=== PATIENT | female | born 1955 | race Caucasian/White ===

== ENCOUNTER 2023-06-03 14:07 | Emergency (ER) | payer MEDICARE, SELFPAY ==
[2023-06-03 14:25] VITALS: BP 107/70; PULSE 95; RESP 16; TEMP 39.5; O2SAT 97
--- NOTE | 2023-06-03 14:25 | ED.GENADULT ---
HPI - General Adult General Chief complaint: Upper Respiratory Infection Stated complaint: fever,chills,body aches Source: patient and RN notes reviewed History of Present Illness HPI narrative: 67 yo F presents to urgent care with multiple medical complaints. Pt states she has been feeling terrible since yesterday. Pt reports upper chest pain that radiates into her neck and jaw, nausea, ARGUELLO, fevers, and weakness. Pt states she feels like she could pass out and can't make it 5 ft to the bathroom b/c of her weakness. Pt reports a slight cough and a little diarrhea. Denies any SOB, vomiting, sore throat, or ear pain. Pt took Tylenol arthritis around 10 am today. Related Data Home Medications Medication Instructions Recorded Confirmed duloxetine 60 mg capsule,delayed mg PO 06/03/23 release orphenadrine citrate 100 mg mg PO 06/03/23 tablet,extended release propranolol 60 mg capsule,24 mg PO 06/03/23 hr,extended release topiramate 50 mg tablet mg 06/03/23 Allergies Allergy/AdvReac Type Severity Reaction Status Date / Time Sulfa (Sulfonamide Allergy Rash Verified 06/03/23 14:26 Antibiotics) ibuprofen AdvReac Other Verified 06/03/23 14:41 Review of Systems Review of Systems: Pertinent positives and pertinent negatives per HPI. [facility] Comments At the time of my signature, I reviewed and agree with the nursing past medical, surgical, social, and family history. There is no relevant family history pertinent to the patient complaint. Exam Narrative: GENERAL: Pt appears ill and weak. HEAD: normocephalic, atraumatic. EYES: Sclera clear/white. Vision is grossly intact. EARS: External ears normal, auditory canals clear and without drainage. Hearing grossly intact. NOSE: External nose normal with no obvious nasal discharge, nares without redness, no rhinorrhea. THROAT: Mucous membranes moist, posterior pharynx clear. NECK: Neck supple, non-tender without lymphadenopathy, masses or thyromegaly. CARDIOVASCULAR: Regular rate and rhythm without murmurs, gallops, or rubs. RESPIRATORY: Clear to auscultation. Breath sounds equal bilaterally. No wheezes, rales, or rhonchi. GASTROINTESTINAL: Abdomen soft, non-tender, nondistended. Bowel sounds are active. No hepato-splenomegaly, or palpable masses. No guarding. SKIN: warm, intact with no suspicious lesions or rash, good texture and turgor. NEURO: awake, alert, and oriented to person, place and time. BACK: Nontender without deformity or crepitus. No flank tenderness. Course Course Level of Care: Express Care Visit Vital Signs Vital signs: Vital Signs Temperature 103.1 F H 06/03/23 14:25 Pulse Rate 95 06/03/23 14:25 Respiratory Rate 16 06/03/23 14:25 Blood Pressure 107/70 06/03/23 14:25 Pulse Oximetry 97 06/03/23 14:25 Oxygen Delivery Room Air 06/03/23 14:25 Temperature 103.1 F H 06/03/23 14:25 Pulse Rate 95 06/03/23 14:25 Respiratory Rate 16 06/03/23 14:25 Blood Pressure 107/70 06/03/23 14:25 Pulse Oximetry 97 06/03/23 14:25 Oxygen Delivery Room Air 06/03/23 14:25 reviewed Medical Decision Making MDM Narrative Medical decision making narrative: Pt informed of reasons for recommended ER transfer, including blood work and IV fluids. Pt agrees to go with her taking her. Pt called and he is on his way from work. Report called to Dr. Gonzalez at [facility], who accepts pt. Differential Diagnosis Differential Diagnosis: covid, viral illness, cardiac event Vital Signs Vital Signs: Vital Signs Temperature 103.1 F H 06/03/23 14:25 Pulse Rate 95 06/03/23 14:25 Respiratory Rate 16 06/03/23 14:25 Blood Pressure 107/70 06/03/23 14:25 Pulse Oximetry 97 06/03/23 14:25 Oxygen Delivery Room Air 06/03/23 14:25 Temperature 103.1 F H 06/03/23 14:25 Pulse Rate 95 06/03/23 14:25 Respiratory Rate 16 06/03/23 14:25 Blood Pressure 107/70 06/03/23 14:25 Pu
[2023-06-03 15:07] VITALS: TEMP 39.5
[2023-06-03] MEDS: ACETAMINOPHEN 325 MG TABLET 650 MG PO (15:07)
[2023-06-03] MEDS: ONDANSETRON HCL ODT 4 MG TABLET PO (15:07)
--- NOTE | 2023-06-03 15:13 | ECG_ITS ---
Measurements Intervals [place] Rate: 91 P: 7 MO: 158 QRS: -17 QRSD: 92 T: 24 QT: 340 QTc: 418 Interpretive Statements SINUS RHYTHM MINIMAL VOLTAGE CRITERIA FOR LVH, CONSIDER NORMAL VARIANT [MEETS CRITERIA IN ONE OF: R(aVL), S(V1), R(V5), R(V5/V6)+S(V1)] NO PREVIOUS ECG AVAILABLE FOR COMPARISON Electronically Signed On 06-04-2023 11:31:34 CDT by Petrona Huynh M.D.
[2023-06-03 15:32] VITALS: BP 130/68; PULSE 94; RESP 20; TEMP 38.2; O2SAT 99
[2023-06-03 15:37] VITALS: TEMP 38.2
== END 2023-06-03 15:40 | disposition short-term general hospital (02) ==
PROVIDERS: Emergency Provider Nurse Practitioner Family; PCP Emergency Medicine
DX: B34.9 Viral infection, unspecified (principal); Z20.822 Contact with and (suspected) exposure to COVID-19; Z98.84 Bariatric surgery status
CPT/HCPCS: 87426; 93005; 99203; A9270; C9803; G0463

== ENCOUNTER 2023-06-03 15:59 | Emergency (ER) | payer MEDICARE, SELFPAY ==
[2023-06-03] VITALS (7 sets, daily range): BP systolic 117–137; BP diastolic 47–75; PULSE 69–91; RESP 15–19; TEMP 37.4–38.9; O2SAT 94–100
--- NOTE | ~2023-06-03 | XR_ITS ---
EXAMINATION: XR chest 2V DATE: 06/03/2023 17:08 INDICATION: Chest pain, cough and fever TECHNIQUE: PA and lateral views of the chest were obtained. COMPARISON: None FINDINGS: The lungs are clear with no focal airspace opacities, pulmonary edema, pleural effusion or pneumothor ax. Size is normal. Tortuous thoracic aorta. Cholecystectomy clips in right upper quadrant. Mild to m oderate thoracic spondylosis. IMPRESSION: 1. No acute cardiopulmonary disease. Reviewed, dictated and finalized at location A.
--- NOTE | 2023-06-03 16:49 | ECG_ITS ---
Measurements Intervals [place] Rate: 84 P: 5 MT: 148 QRS: -11 QRSD: 92 T: 30 QT: 357 QTc: 424 Interpretive Statements SINUS RHYTHM COMPARED TO ECG 06/03/2023 15:14:22 NO SIGNIFICANT CHANGES Electronically Signed On 06-04-2023 11:33:48 CDT by Petrona Huynh M.D.
[2023-06-03 17:21] LABS: Basophils Absolute Auto 0.1 K/mm3 (0.0-0.1); Eosinophils Percent Auto 0.6 % (0-4.4); Hematocrit 44.7 % (37.0-47.0); Hemoglobin 14.5 g/dL (12.0-15.0); Immature Granulocyte Absolute 0.02 K/mm3 (0.00-0.031); Immature Granulocyte Percent A 0.4 % (0-0.5); Lymphocytes Absolute Auto 0.52 K/mm3 (0.9-3.2); Lymphocytes Percent Auto 10.4 % (18.3-44.2); Mean Corpuscular HGB Conc 32.4 g/dl (32-36); Mean Corpuscular Hemoglobin 31.7 pg (26-34); Mean Corpuscular Volume 97.8 fl (80-100); Mean Platelet Volume 9.1 fl (7.4-10.4); Monocytes Absolute Auto 0.6 K/mm3 (0.1-0.6); Monocytes Percent Auto 11.8 % (2.6-8.5); Neutrophils Absolute Auto 3.8 K/mm3 (1.3-6.7); Neutrophils Percent Auto 75.8 % (45.5-73.1); Platelet Count Result 159 k/mm3 (150-375); Red Blood Count 4.57 M/mm3 (4.2-5.4); Red Cell Distribution Width 13.2 % (11.5-14.5)
[2023-06-03 17:33] LABS: Alanine Aminotransferase 24 U/L (6-35); Albumin Level 4.5 g/dL (3.5-5.1); Alkaline Phosphatase 99 U/L (38-126); Anion Gap 6 mmol/L (8-16); Aspartate Amino Transferase 27 U/L (14-36); Bilirubin,Total 0.5 mg/dL (0.2-1.3); Blood Urea Nitrogen 11 mg/dL (7-17); Calcium 8.6 mg/dL (8.4-10.2); Carbon Dioxide 25 mmol/L (22-30); Chloride 106 mmol/L (98-107); Estimated CRCL calculation 86 ml/min; Estimated Glomerular Filt Rate > 60; Glucose 123 mg/dL (65-110); Lipase 38 U/L (23-300); Potassium 3.8 mmol/L (3.4-5.0); Sodium 137 mmol/L (137-145)
[2023-06-03 17:43] LABS: Troponin I < 0.012 ng/mL (0.000-0.034)
[2023-06-03 17:57] LABS: Influenza A QL RT-PCR Negative (Negative); Influenza B QL RT-PCR Negative (Negative); SARS-CoV-2 RNA PCR Positive (Negative)
[2023-06-03 18:11] LABS: Prothrombin Time 14.2 Seconds (11.1-14.7)
[2023-06-03 18:12] LABS: Partial Thromboplastin Time 29.2 SECONDS (22.3-36.8)
[2023-06-03 21:03] LABS: Troponin I < 0.012 ng/mL (0.000-0.034)
[2023-06-03] MEDS: ACETAMINOPHEN 500 MG TABLET 1000 MG PO (22:17)
[2023-06-03 22:28] LABS: D Dimer 0.31 ug/mL (<0.48)
--- NOTE | 2023-06-03 22:34 | ED.FEVER ---
HPI - Fever General Chief Complaint: Fever Stated Complaint: fever Time Seen by Provider: 06/03/23 21:42 Source: patient and family Mode of arrival: ambulatory Limitations: no limitations History of Present Illness HPI Narrative: This is a 67-year-old female that presents to the emergency department for cold symptoms present since yesterday. Reports fever, fatigue, myalgias, and cough. She is COVID vaccinated. Patient was sent for evaluation from urgent care due to her having some chest pain. Reports some nausea. Denies abdominal pain or vomiting. Related Data Home Medications Medication Instructions Recorded Confirmed duloxetine 60 mg capsule,delayed mg PO 06/03/23 release orphenadrine citrate 100 mg mg PO 06/03/23 tablet,extended release propranolol 60 mg capsule,24 mg PO 06/03/23 hr,extended release topiramate 50 mg tablet mg 06/03/23 Allergies Allergy/AdvReac Type Severity Reaction Status Date / Time Sulfa (Sulfonamide Allergy Rash Verified 06/03/23 14:26 Antibiotics) ibuprofen AdvReac Other Verified 06/03/23 14:41 Review of Systems Review of Systems: CONSTITUTIONAL: Reports fever ENT: Reports congestion CARDIOVASCULAR: Reports chest pain. Denies edema. RESPIRATORY: Reports cough and dyspnea. GASTROINTESTINAL: Reports nausea MUSCULOSKELETAL: Reports myalgia. All systems reviewed & are unremarkable except as noted in HPI and below PMFSH Past Medical History Medical History (Updated 06/03/23 @ 23:33 by Kita Bruner PA-C) History of depression History of migraine headaches Social History Social History (Updated 06/03/23 @ 23:33 by Kita Bruner PA-C) Substance use: never Exam Narrative: GENERAL: Well-appearing, well-nourished, and in no acute distress. HEAD: Normocephalic, atraumatic. EYES: EOMI. ENT: Nares clear, no rhinorrhea or epistaxis. Mucous membranes moist. Oropharynx without tonsillar hypertrophy exudate or other lesions. Bilateral TMs pearly rehman non-bulging NECK: Supple. No adenopathy or masses. CHEST: Clear to auscultation. No respiratory distress. No wheezes rales or rhonchi HEART: Regular rate and rhythm. No murmur heard. Normal peripheral pulses. ABDOMEN: Soft, nontender, nondistended, normal active bowel sounds. EXTREMITIES: Normal range of motion. No edema. SKIN: Warm, dry, no rash. NEURO: No focal deficits. Alert and oriented x3. PSYCH: Normal mood and affect Course HEDIS REGISTERED NURSE RN/PA Physician Supervision Patient and family updated on workup and agree with plan of care Vital Signs Vital signs: Vital Signs Temperature 99.3 F 06/03/23 16:45 Pulse Rate 85 06/03/23 16:45 Respiratory Rate 18 06/03/23 16:45 Blood Pressure 126/62 06/03/23 16:45 Pulse Oximetry 95 06/03/23 16:45 Oxygen Delivery Room Air 06/03/23 16:45 Temperature 101.2 F H 06/03/23 22:47 Pulse Rate 78 06/03/23 22:04 Respiratory Rate 19 06/03/23 22:04 Blood Pressure 122/47 L 06/03/23 22:04 Pulse Oximetry 97 06/03/23 22:04 Oxygen Delivery Room Air 06/03/23 21:33 MDM - Fever MDM Narrative Medical decision making narrative: Patient presents to the emergency department for fever and myalgias. Febrile in the ED. Found to be positive for COVID-19. Oxygen saturation has remained normal on room air. CBC metabolic panel without concerning findings. Chest x-ray without acute cardiopulmonary abnormality. EKG without acute ST changes at baseline and throughout troponin are negative. D-dimer is not elevated. Patient and family updated on workup. Will be prescribed Paxlovid and was instructed on continued care a viral infection. She is to follow up with primary provider. She was given warnings to return to the ER Differential Diagnosis Differential diagnosis: Likely fever of unknown origin, community acquired pneumonia, viral infection and influenza Lab Data Attestation: I reviewed the patient's lab results. 06/03/23 17:02 05/14
--- NOTE | 2023-06-03 22:39 | PC.NURSE ---
Per EDP STEFFANY Wall six hour troponin not needed on the patient
[2023-06-03] MEDS: KETOROLAC 30 MG/ML VIAL (*BKC) IM (22:58)
== END 2023-06-03 23:39 | disposition home or self-care (01) ==
PROVIDERS: Emergency Medicine; Emergency Provider Physician Assistant; PCP Emergency Medicine
DX: U07.1 COVID-19 (principal); R07.9 Chest pain, unspecified; F32.A Depression, unspecified
CPT/HCPCS: 36415; 71046; 80053; 83690; 84484; 85025; 85380; 85610; 85730; 87426; 87636; 93005; 96372; 99284; A9270; C9803; J1885

== ENCOUNTER 2023-07-18 16:11 | Outpatient (CLI) | payer OTHER, SELFPAY ==
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
== END 2023-07-18 16:12 | disposition home or self-care (01) ==
LOC: CHSIMG 16:14
PROVIDERS: PCP Internal Medicine; Visit Provider Internal Medicine
DX: M54.2 Cervicalgia (principal); M43.8X2 Other specified deforming dorsopathies, cervical region; M43.02 Spondylolysis, cervical region; M46.02 Spinal enthesopathy, cervical region
CPT/HCPCS: 72050

== ENCOUNTER 2024-09-30 08:20 | Emergency (ER) | payer MEDICARE, SELFPAY ==
--- NOTE | ~2024-09-30 | XR_ITS ---
EXAMINATION: XR chest 2V 09/30/2024 09:09 INDICATION: Productive cough PROCEDURE: 2 view chest COMPARISON: 06/08/2024 FINDINGS: The lungs are clear. The cardiomediastinal silhouette is within normal limits. There are no pleural effusions. There is no pneumothorax suspected. IMPRESSION: 1: NO ACUTE CARDIOPULMONARY DISEASE. Reviewed, dictated and finalized at location [] MASTERS MANAGER
--- NOTE | 2024-09-30 08:41 | ED_ITS ---
HPI - URI/Sore Throat General Chief Complaint: Upper Respiratory Infection Stated Complaint: cough,ARGUELLO,fever,chills Time Seen by Provider: 09/30/24 08:50 Source: patient, RN notes reviewed and old records reviewed Mode of arrival: ambulatory Limitations: no limitations History of Present Illness HPI Narrative: 68-year-old female presents to the [facility] with cough, headache, fever and chills that started 10-14 days ago. Onset (ago): day(s) (-) Treatments prior to arrival: cold medicine Related Data Home Medications ?Medication ?Instructions ?Recorded ?Confirmed ?Last Taken ?Type duloxetine 60 mg capsule,delayed 60 mg PO DAILY 06/03/23 09/30/24 Unknown History release orphenadrine citrate 100 mg 100 mg PO DAILY 06/03/23 09/30/24 Unknown History tablet,extended release propranolol 60 mg capsule,24 60 mg PO Q24H 06/03/23 09/30/24 Unknown History hr,extended release topiramate 50 mg tablet 50 mg PO Q12H 06/03/23 09/30/24 Unknown History estradiol 0.01% (0.1 mg/gram) 1 g vaginal WEEKLY 09/30/24 09/30/24 Unknown History vaginal cream polyethylene glycol 3350 17 17 g PO DAILY 09/30/24 09/30/24 Unknown History gram/dose oral powder Allergies Allergy/AdvReac Type Severity Reaction Status Date / Time adhesive tape Allergy Rash Verified 09/30/24 08:37 levofloxacin (From Levaquin) Allergy Other Verified 09/30/24 08:37 NSAIDS (Non-Steroidal Allergy Other Verified 09/30/24 08:37 Anti-Inflamma Sulfa (Sulfonamide Allergy Rash Verified 09/30/24 08:37 Antibiotics) ibuprofen AdvReac Other Verified 09/30/24 08:37 Review of Systems Review of Systems: All systems reviewed & are unremarkable except as noted in HPI and below Constitutional: Constitutional: Reports as per HPI, Reports body ache(s) and Reports fatigue ENT: Reports system reviewed and no additional complaints, except as documented Cardiovascular: Cardiovascular: Reports no additional cardiovascular complaints, Denies chest pain and Denies dyspnea Respiratory: Respiratory: Reports as per HPI, Reports chest congestion, Reports cough and Denies dyspnea Gastrointestinal: Gastrointestinal: Reports no additional gastrointestinal complaints, Denies abdominal pain, Denies nausea and Denies vomiting Musculoskeletal: Musculoskeletal: Reports no additional musculoskeletal complaints Integumentary/Breasts: Skin/Breast: Reports system reviewed and no additional complaints, except as docu [facility] Past Medical History Medical History History of depression History of migraine headaches Social History Social History Substance use: never Comments At the time of my signature, I reviewed and agree with the nursing past medical, surgical, social, and family history. There is no relevant family history pertinent to the patient complaint. Exam Const: General: cooperative, no acute distress, well developed, alert, uncomfortable and well nourished Nutritional Appearance: well nourished Orientation/consciousness: patient oriented x3 Limitations: no limitations HENMT: Head: normal to inspection Ears: hearing grossly normal bilaterally, external ears normal, TM's normal bilaterally, EAC's normal, mastoids normal and no periauricular adenopathy Face/Nose/Sinus: Normal external nose present, normal facial exam and face symmetric Face and sinus: normal facial exam and face symmetric Mouth: Yes Normal oral and palatal mucosa present, Yes lip normal and Yes tongue normal Throat: posterior oropharynx normal, uvula midline, postnasal drainage and no uvular edema Eyes: General: appearance normal, both eyes and all related structures Alignment and Position: alignment normal Periorbital: periorbital findings normal Neck: Neck: normal visual inspection, full ROM, no lymphadenopathy and no meningeal signs Chest: Chest palpation & inspection: normal inspection of the chest Resp: Effort & Inspection: normal respiratory effort and able to speak in complete sentences Auscultation: clear to auscultation bilaterally, no crackles, no rales, no rhonchi, no wheezes and diminished lung sounds bilateral in the lower lung blair Cardio: Rate: regular rate Skin: General skin exam: normal color and no rashes or lesions noted Lesions: no lesions Rashes: no rashes Wounds: no wounds Neuro: General: patient oriented x3, gait normal, tone normal, moves all extremities and no meningeal signs Cognition (Neuro): normal cognition Speech: normal speech Gait exam (Neuro): Normal gait present Extrem: General: normal to inspection, full ROM, capillary refill normal and normal gait Psych: Appearance: grossly normal and well kempt Mental Status: mental status grossly normal Speech and movement: Normal speech and movement present and Clear speech present Affect: normal affect Attitude: cooperative Course Course Level of Care: Express Care Visit Vital Signs Vital signs: Vital Signs Temperature 98.4 F 09/30/24 08:49 Pulse Rate 74 09/30/24 08:49 Respiratory Rate 16 09/30/24 08:49 Blood Pressure 109/81 09/30/24 08:49 Pulse Oximetry 97 09/30/24 08:49 Oxygen Delivery Room Air 09/30/24 08:49 Temperature 98.4 F 09/30/24 08:49 Pulse Rate 74 09/30/24 08:49 Respiratory Rate 16 09/30/24 08:49 Blood Pressure 109/81 09/30/24 08:49 Pulse Oximetry 97 09/30/24 08:49 Oxygen Delivery Room Air 09/30/24 08:49 Reviewed MDM - URI/Sore Throat MDM Narrative Medical decision making narrative: Patient sitting in exam room. Nontoxic, vitals stable. Patient with 10-14 days of URI symptoms Patient's chest x-ray negative Exam consistent with sinusitis as well as bronchitis. Due to patient's age and length of illness will cover with an antibiotic, discussed that sometimes bronchitis cough can last for several weeks if not a couple of months. Patient appropriate for outpatient treatment with close follow-up Discharge instructions reviewed with patient, as well as provided in writing per nursing staff. The instructions also include specific and strict return/GO TO THE ER as well as f/u information. All questions have been answered, and the patient deny any further questions with discharge and discharge plan. Some parts of this dictation were generated by voice recognition software and may contain typographical and/or grammatical inaccuracies. Differential Diagnosis Differential diagnosis: Likely upper respiratory infection, otitis media, sinusitis, viral infection, bronchitis, influenza and pharyngitis Imaging Data Radiologist's impression: EXAMINATION: XR chest 2V 09/30/2024 09:09 INDICATION: Productive cough PROCEDURE: 2 view chest COMPARISON: 06/08/2024 FINDINGS: The lungs are clear. The cardiomediastinal silhouette is within normal limits. There are no pleural effusions. There is no pneumothorax suspected. IMPRESSION: 1: NO ACUTE CARDIOPULMONARY DISEASE. Critical Care Time Critical Care Time Critical Care Time: No Discharge Plan Discharge Clinical Impression: Bronchitis Sinusitis Qualifiers: Sinusitis location: pansinusitis Chronicity: acute Recurrence: not specified as recurrent Qualified Code(s): J01.40 - Acute pansinusitis, unspecified Patient Disposition: Home, Self-Care Condition: Stable Instructions: Antibiotic Form, Sinusitis (ED), Acute Bronchitis (ED) Additional Instructions: Today your chest x-ray did not show signs of a pneumonia. You have been diagnosed with bronchitis and sinusitis, sometimes the cough after treatment can last for several weeks if not months. Please follow-up with your primary care provider as soon as possible. It is also very important to treat your symptoms. Drink plenty of water, Gatorade, Pedialyte, ice pops or Jell-O. -take Tylenol per package directions for fever or pain. -Antihistamine medication such as Zyrtec/Claritin/Lolita during the day can help improve symptoms. -doing daily nasal irrigations can help relieve pressure your sinuses. Things like a Neti pot -Use Flonase twice a day for 5 days then daily to help reduce the inflammation and dry up your sinuses. -You can also use Mucinex. Be sure to drink plenty of water with this medication at least 8 ounces with every dose and it is important to drink 8 to 10 glasses of water per day. Water is a natural decongestant -Eat and drink things that are easy to swallow, like tea or soup, or popsicles. -Oral rinses such as: Salt water gargles and/or may use topical anesthetic (eg. Chloraseptic spray) or lozenges to relieve dryness or throat pain). -Frequent hand washing or hand wire repairer is one of the best ways to prevent spread of infection. -Using a vaporizer or humidifier at night will also help thin secretions and help with coughing up phlegm. -Follow up with primary care provider in 7-10 days if condition is not improving -For new or worsening symptoms go directly to the nearest ER Patient Language: Korean Prescriptions: New doxycycline monohydrate 100 mg tablet 100 mg PO BID Qty: 14 0RF prednisone 20 mg tablet See Rx Instructions .Route .COMPLEX Qty: 9 0RF Rx Instructions: Take 40 mg daily for 3 days, 20 mg daily for 3 days benzonatate 100 mg capsule 100 mg PO TID PRN (Reason: cough) Qty: 15 0RF No Action propranolol 60 mg capsule,extended release 24 hr 60 mg PO Q24H orphenadrine citrate 100 mg tablet extended release 100 mg PO DAILY topiramate 50 mg tablet 50 mg PO Q12H duloxetine 60 mg capsule,delayed release(DR/EC) 60 mg PO DAILY estradiol 0.01 % (0.1 mg/gram) cream 1 g VAGINAL WEEKLY polyethylene glycol 3350 17 gram/dose powder 17 g PO DAILY Follow-up/Referrals: Elver Kumar MD [Primary Care Provider] - 1 Week ([facility] care follow up ) Time of Disposition: 09:20
[2024-09-30 08:49] VITALS: BP 109/81; PULSE 74; RESP 16; TEMP 36.9; O2SAT 97
== END 2024-09-30 09:25 | disposition home or self-care (01) ==
PROVIDERS: Emergency Provider Nurse Practitioner; PCP Internal Medicine
DX: J40 Bronchitis, not specified as acute or chronic (principal); J01.40 Acute pansinusitis, unspecified; Z79.899 Other long term (current) drug therapy
CPT/HCPCS: 71046; 99213; G0463

== ENCOUNTER 2024-11-18 11:21 | Outpatient (CLI) | payer MEDICARE, SELFPAY ==
--- OUTSIDE RECORDS SUMMARY | 2024-11-18 11:44 | XMS_ITS | Encounter Summary ---
Author Organization [facility] Address [address] [place] [address] Care Team Providers Care [employer] Name Role Phone Elver Kumar MD Primary Care Provider [phone] Reason for Visit * Reason Onset Date Comments Referral Follow up 05/11/2024 Dr Luther woods : Colon Cancer Screening Referral Follow Up 05/11/2024 Dr Araujo Encounter Details Date Type Department Care Team (Late st Contact Info) Description 05/11/2024 Telephone [employer] [address] [place] [address] [place] [address] Keely Saleh MD [address] [place] [id number] Referral Follow up (Dr Luther Gomez : Colon Cancer Screening ); Referral Follow Up (Dr Araujo ) Social History Tobacco Use Types Packs/Day Years Used Date Smoking Tobacco: Never Smokeless Tobacco: Never Humiliation, Afraid, Rape, and Kick questionnair e Answer Date Recorded Within the last year, have y ou been afraid of your partner or ex-partner? No 02/12/2024 Within the last year, have y ou been humiliated or emotionally abused in other ways by your partner or ex-partner? No Within the last year, have y ou been kicked, hit, slapped, or otherwise physically hurt by your partner or ex-partner? No 02/12/2024 Within the last year, have y ou been raped or forced to have any kind of sexual activity by your partner or ex-partner? No 02/12/2024 Personal Safety Answer Date Recorded Getting School Help Needed Not on file 02/01 Comments No Sex and Gender Information Value Date Recorded Sex Assigned at Not on file Legal Sex Female 6:50 PM [employer] Gender Identity Not on file Sexual Orientation Not on file documented as of this encounter Miscellaneous Notes * Telephone Encounter - Deborah Fuentes MA - 11/17/2024 2:59 PM [employer] [phone] UROGYN Nancy Morfin MD Spoke w/ Leslee Claims that patient was scheduled 08/19/2024, declined to r/s. [phone] No answer, left a detailed VM (HIPAA approved) to enc patient to call Dr Morfin's office, provided number to reschedule her appointment. Thank you, Deborah RMAN * Telephone Encounter - Deborah Fuentes MA - 05/11/2024 10:24 AM CDT [phone] Gayle's office Spoke w/ Clemencia Following up on referral faxed 03/03/2024 Verified that this referral was NOT received Refaxed to [phone], REN Gaviria Received fax confirmation Thank you Deborah * Telephone Encounter - Deborah Fuentes MA - 05/11/2024 10:[address] CD[address] [phone] Gomez office. Spoke w/ Michelle Following up referral faxed 03/11/2024 Verified that patient completed colonoscopy on 04/09/2024 Requested results to be faxed to [phone] Claims that she can not find the company name in the system, asked if office was Maria [facility]berg, verified [facility] - Claims that she will ask for some help to get these results faxed to our office Thank you Deborah documented in this encounter Plan of Treatment Not on file documented as of this encounter Visit Diagnoses Not on filedocumented in this encounter Care Teams [employer] Relationship Specialty Start Date End Date Elver Kumar MD PCP - General Internal Medicine 02/04/24 documented as of this encounter
--- OUTSIDE RECORDS SUMMARY | 2024-11-18 11:44 | XMS_ITS | Clinical Summary ---
Author Organization [facility] [address] [place] Address [address] [place] [phone] Care Team Providers Care Dandy Operator Name Role Phone Elver Kumar MD Primary Care Provider [phone] Allergies Active Allergy Reactions Criticality Noted Date Comments Latex Rash Medium 02/12/2024 Sulfa (Sulfonamide Antibiotics) Medications DULoxetine DR (CYMBALTA) 60 mg capsule Take 1 capsule (60 mg total) by mouth daily 12/04/2023 Active topiramate (TOPAMAX) 50 mg tablet Take 1 tablet (50 mg total) by mouth 2 (two) times a day 01/02/2024 Active propranolol LA (INDERAL LA) 60 mg 24 hr capsule TAKE 1 CAPSULE BY MOUTH IN THE EVENING 12/04/2023 Active orphenadrine ER (NORFLEX) 100 mg 12 hr tablet Take 1 tablet (100 mg total) by mouth nightly 11/18/2023 Active cyanocobalamin (Vitamin B-12) 100 mcg tabletIndicatio ns:Prevention of Vitamin B12 Deficiency Take 1 tablet (100 mcg total) by mouth daily Active multivitamin with minerals capsule Take by mouth Active calcium carbonate (TUMS) 500 mg (200 mg elemental calcium) chewable tablet Take 1 tablet/chew tab (500 mg total) by mouth daily Active magnesium gluconate 200 mg tabletIndicatio ns:hypomagnesem ia 1 tablet (200 mg total) Active iron 18 mg tablet Take by mouth Active estradioL (Estrace) 0.01 % (0.1 mg/gram) vaginal cream Insert 1 g into the vagina 2 (two) times a week 42.5 g 3 02/19/2024 Active Active Problems Problem Noted Date Diagnosed Date Postmenopausal bleeding 03/03/2024 Assessment & Plan (03/03/2024 4:17 PM CDT): We will follow-up on this when she comes back for her return appointment Rectocele 02/12/2024 Assessment & Plan (03/03/2024 4:14 PM CDT): As she wants a 2nd opinion I will send her to Dr. Araujo In the meantime I think she should continue with the vaginal estrogen and arrange to have the pelvic floor physical therapy Assessment & Plan (02/12/2024 11:28 AM CDT): It is large Will refer to uro agriculture science teacher Well woman exam 02/12/2024 Overview (02/12/2024): Lab: Pap: all normal. Last was 2022. Pcp follows labs. Angely:2022 Colonoscopy:due- pcp will arrange BMD:due Family history of prostate cancer 02/12/2024 Overview (03/29/2024): F and brother x 2 prostate with mets. 03/29/2024-myRisk is negative. TCA score is 7.6% in my risk score is 5.9% Assessment & Plan (03/03/2024 4:15 PM CDT): She would like to do genetic testing The benefits and limitations were discussed at her last appointment Assessment & Plan (02/12/2024 11:17 AM CDT): She will think about testing. Vulvar lesion 02/12/2024 Assessment & Plan (02/12/2024 11:29 AM CDT): To continue with coconut oil Pelvic and perineal pain 02/12/2024 Assessment & Plan (03/03/2024 4:14 PM CDT): She needs to have a colonoscopy as she is due also because of the change on her ultrasound. She wants to see a bariatric surgeon she thinks that her pain is related to this I have encouraged her to follow-up with the surgeon that did her surgery or with Dr. 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 2000 ? Maybe ANAL FISSURECTOMY ABDOMINOPLASTY Medical History Medical History Date Comments Arthritis Migraines Irregular menses Urinary tract infection Endometriosis Uterine prolapse Rectocele Kidney stone Varicella Hypertension History of transfusion Family History Medical History Relation Name Comments Alcohol abuse Brother 1 Lalo Prostate cancer Brother 1 Lalo with mets Prostate cancer Brother 2 Shan with mets Hearing loss Father Denny Prostate cancer Father Denny with mets Arthritis Mother Alida defects Mother Alida Heart disease Mother Alida Hypertension Mother Alida Cancer Neg Hx no colon, breas t, agriculture science teacher cancer cmt 02/12/24 Relation Name Status Comments Brother 1 Lalo Brother 2 Shan Alive Father Denny Mother Alida Social History Tobacco Use Types Packs/Day Years Used Date Smoking Tobacco: Never Smokeless Tobacco: Never Tobacco Cessation:Counseling Given: Not Answered Humiliation, Afraid, Rape, and Kick questionnair e [...] on file Legal Sex 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 Gender Identity Not on file Sexual Orientation Not on file Obstetrics History Para Term AB IAB SAB Ectopic Multiple Livin g Live Births 3 2 2 1 1 2 2 Date Outcome GA Total Labor Labor/2nd/3rd Weight Sex Type Anes PTL Jenny A1 A5 Name Clin SAB 6 Term F Vag-S pont Living 9 Term M Vag-S pont Living Last Filed Vital Signs Vital Sign Reading Time Taken Comments Blood Pressure 122/80 03/03/2024 3:23 PM CDT Pulse - - Temperature - - Respiratory Rate - - Oxygen Saturation - - Inhaled Oxygen Concentration - - Weight 118.8 kg (262 lb) 03/03/2024 3:23 PM CDT Height 167.6 cm (5' 6 ) 02/17/2024 2:21 PM CDT Body Mass Index 42.29 02/17/2024 2:21 PM CDT Plan of Treatment Health Maintenance Due Date Last Done Comments Breast Cancer Screening-Mammogram 1955 Colon Cancer Screening-Colonoscopy 1957 Depression Screening 1957 Fall Risk Assessment 1957 Hepatitis C Screening 1957 Osteoporosis Screening-Bone Density Scan 1957 DTaP/Tdap/Td Vaccine (1 - Tdap) 1968 Hepatitis B Screening 1975 Well Visit 65+ 2022 Influenza Vaccine (#1) 2024 3, 07/12/2021, 08/02/2020, Additional history exists Zoster Vaccine Completed 04/15/2019, 09/27/2018 Pneumococcal vaccine 65+ Completed 09/09/2023, 07/13 Insurance [employer] [facility] ADVANTRA [facility] Care Teams Dandy Operator Relationship Specialty Start Date End Date Elver Kumar MD PCP - General Internal Medicine 02/04/24
--- OUTSIDE RECORDS SUMMARY | 2024-11-18 11:44 | XMS_ITS | Referral Summary ---
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
--- OUTSIDE RECORDS SUMMARY | 2024-11-18 11:45 | XMS_ITS | Referral Summary ---
Author Organization [facility] Address [address] [place] [address] Care Team Providers Care Chandelier Maker Name Role Phone Unavailable Primary Care Provider Unavailabl e Source Comments [facility],non-owned Affiliates and Associated Physician Practices is amultiple site organization consisting of ambulatory clinics and hospital sitesin [place], [place], [place] and [place]. This disclosure is being madepursuant to the Care Everywhere program and may not contain all information available regarding this patient. Last updated 18.[facility] Social History Tobacco Use Types Packs/Day Years Used Date Smoking Tobacco: Never Assessed Sex and Gender Information Value Date Recorded Sex Assigned at Not on file Gender Identity Not on file Sexual Orientation Not on file Plan of Treatment Not on file
--- OUTSIDE RECORDS SUMMARY | 2024-11-18 11:45 | XMS_ITS | Clinical Summary ---
Author Organization [facility] Address [address] [place] [address] Care Team Providers Care Mounting Inspector Name Role Phone Unavailable Primary Care Provider Unavailabl e Source Comments [facility],non-owned Affiliates and Associated Physician Practices is amultiple site organization consisting of ambulatory clinics and hospital sitesin [place], [place], [place] and [place]. This disclosure is being madepursuant to the Care Everywhere program and may not contain all information available regarding this patient. Last updated 18.[facility] [employer] Social History Tobacco Use Types Packs/Day Years Used Date Smoking Tobacco: Never Assessed Sex and Gender Information Value Date Recorded Sex Assigned at Not on file Gender Identity Not on file Sexual Orientation Not on file Plan of Treatment Health Maintenance Due Date Last Done Comments BONE DENSITY TESTING 1957 COLOGUARD (AGES 45-75) - COLON CA SCREENING 1957 COLON MONITORING 1957 COLONOSCOPY - COLON CA SCREENING 1957 CT COLONOGRAPHY - COLON CA SCREENING 1957 Colorectal Cancer Screening 1957 FIT - COLON CA SCREENING 1957 FLEX SIG - COLON CA SCREENING 1957 LIPID TESTING 1957 MAMMOGRAM 1957 HEPATITIS C SCREENING 10/15/1975 DTAP/TDAP/TD VACCINES (1 - Tdap) 1976 PNEUMOCOCCAL VACCINE 50+ (1 of 1 - PCV) 2007 ZOSTER VACCINE (1 of 2) 2007 COVID-19 VACCINE (4 - 2023- season) 2024 07/12/2021, 11/15/2020, 2020 INFLUENZA VACCINE (#1) 2024 3, 07/12/2021, 08/02/2020, Additional history exists DEPRESSION SCREENING 10/13/2024 MEDICARE AWV CALENDAR YEAR 2024 Respiratory Syncytial Virus (RSV) Vaccine Pt: or over 60 yrs (1 - 1-dose 75+ series) 2032 HEPATITIS B VACCINE Aged Out No longe r eligible based on patient's age to complete this topic HIB VACCINE Aged Out No longer eligi ble based on patient's age to complete this topic HPV VACCINE Aged Out No longer eligi ble based on patient's age to complete this topic MENINGOCOCCAL (Group B) VACCINE Aged Out No longer eligible based on patient's age to complete this topic MENINGOCOCCAL VACCINE Aged Out No kala sixto eligible based on patient's age to complete this topic
--- OUTSIDE RECORDS SUMMARY | 2024-11-18 11:45 | XMS_ITS | Patient Health Summary ---
Author Organization [facility] Address [address] [place] [address] Care Team Providers Care Sanitation Worker Name Role Phone Unavailable Primary Care Provider Unavailabl e Note from [facility],non-owned Affiliates and Associated Physician Practices is amultiple site organization consisting of ambulatory clinics and hospital sitesin [place], [place] and [place]. This disclosure is being madepursuant to the Care Everywhere program and may not contain all information available regarding this patient. Last updated 18.[facility] Social History Tobacco Use Types Packs/Day Years Used Date Smoking Tobacco: Never Assessed Sex and Gender Information Value Date Recorded Sex Assigned at Not on file Gender Identity Not on file Sexual Orientation Not on file
--- OUTSIDE RECORDS SUMMARY | 2024-11-18 11:45 | XMS_ITS | Clinical Summary ---
Author Organization [facility] Address [address] [place] [address] Care Team Providers Care School Principal Name Role Phone Unavailable Primary Care Provider Unavailabl e Social History Tobacco Use Types Packs/Day Years Used Date Smoking Tobacco: Never Comments Unknown Sex and Gender Information Value Date Recorded Sex Assigned at Not on file Legal Sex Female 10:07 PM CDT Gender Identity Not on file Sexual Orientation Not on file Last Filed Vital Signs Vital Sign Reading Time Taken Comments Blood Pressure 140/100 10/11/2012 4:17 PM PNEUMATIC TUBE OPERATOR Pulse 78 10/11/2012 4:17 PM PNEUMATIC TUBE OPERATOR Temperature - - Respiratory Rate 16 11/13/2010 1:41 AM PNEUMATIC TUBE OPERATOR Oxygen Saturation - - Inhaled Oxygen Concentration - - Weight 145.2 kg (320 lb) 10/11/2012 4:17 PM PNEUMATIC TUBE OPERATOR Height 170.2 cm (5' 7 ) 10/11/2012 4:17 PM PNEUMATIC TUBE OPERATOR Body Mass Index 50.12 10/11/2012 4:17 PM PNEUMATIC TUBE OPERATOR Plan of Treatment Health Maintenance Due Date Last Done Comments Colorectal Cancer Screening Colonoscopy (10 Years) 1957 Hepatitis C 1975 DTaP, Tdap and Td Vaccines ( 1 - Tdap) 1976 Mammogram Screening 1997 Zoster Vaccines (1 of 2) 2007 Dexa Scan (General) 2022 Pneumococcal Vaccine: 65+ Ye ars (1 of 1 - PCV) 2022 COVID-19 Vaccine ( - 2023-2 5 season) 2024 Influenza Adult (#1) 2024 RSV Immunization or 60+ Years (1 - 1-dose 75+ series) 2032 Meningococcal B Vaccine Aged Out No l onger eligible based on patient's age to complete this topic Meningococcal Vaccine Aged Out No kala sixto eligible based on patient's age to complete this topic RSV Immunizations Under 20 Months Aged Out No longer eligible based on patient's age to complete this topic
[2024-11-18 12:35] LABS: Influenza A QL RT-PCR Positive (Negative); Influenza B QL RT-PCR Negative (Negative); RSV RNA, RT-PCR Negative (Negative); SARS-CoV-2 RNA PCR Negative (Negative)
== END 2024-11-18 11:22 | disposition home or self-care (01) ==
LOC: CHSLAB 11:22
PROVIDERS: PCP Internal Medicine; Visit Provider Internal Medicine
DX: R50.9 Fever, unspecified (principal); R05.9 Cough, unspecified
CPT/HCPCS: 87637

== ENCOUNTER 2025-01-10 11:13 | Outpatient (CLI) | payer MEDICARE, SELFPAY ==
--- NOTE | ~2025-01-10 | XR_ITS ---
XR sinus min 3V 01/10/2025 11:37 Indication: Facial pain Procedure: 5 views of the sinuses Comparison: No prior studies for comparison. Findings: Paranasal sinuses are pneumatized. There is partial opacification of the maxillary sinuses. No air-fluid levels. Mastoids are pneumatized. Mild bowing of the nasal septum to the left. Impression: 1: Partial opacification of the maxillary sinuses, suspicious for sinusitis. Reviewed, dictated and finalized at location A. Impression: 1: Partial opacification of the maxillary sinuses, suspicious for sinusitis.
[2025-01-10 11:46] LABS: Hematocrit 44.7 % (35.0-42.0); Hemoglobin 14.1 g/dL (11.7-13.8); Mean Corpuscular HGB Conc 31.5 g/dL (32-36); Mean Corpuscular Hemoglobin 30.1 pg (27.0-31.0); Mean Corpuscular Volume 95.3 fL (78.0-102.0); Mean Platelet Volume 8.9 fl (9.2-11.8); Platelet Count Result 217 K/mm3 (150-420); Red Blood Count 4.69 M/mm3 (4.20-5.40); White Blood Count 5.7 K/mm3 (4.8-10.8)
--- OUTSIDE RECORDS SUMMARY | 2025-01-10 12:42 | XMS_ITS | Referral Summary ---
Author Organization [facility] [address] Address [address] [place] [phone] Care Team Providers Care Jump Roll Operator Name Role Phone Elver Kumar MD Primary Care Provider Allergies Active Allergy Reactions Criticality Noted Date [...] It is large Will refer to uro project portfolio analyst Well woman exam 02/12/2024 Overview (02/12/2024): Lab: [...] on file Legal Sex Female 6:50 PM MEDICARE NURSE Gender Identity Not on file Sexual Orientation [...] Plan of Treatment Not on file [facility] ADVANTRA [facility] ADVANTRA Care Teams Jump Roll Operator Relationship Specialty Start Date End Date Elver Kumar MD PCP - General Internal Medicine 02/04/24
--- OUTSIDE RECORDS SUMMARY | 2025-01-10 12:42 | XMS_ITS | Clinical Summary ---
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
--- OUTSIDE RECORDS SUMMARY | 2025-01-10 12:42 | XMS_ITS | Clinical Summary ---
Author Organization [facility] Address [address] [place] [address] Care Team Providers Care Cushion Sewer Name Role Phone Unavailable Primary Care Provider Unavailabl e Source Comments [facility],non-owned Affiliates and Associated Physician Practices is amultiple site organization consisting of ambulatory clinics and hospital sitesin [place], [place], [place] and [place]. This disclosure is being madepursuant to the Care Everywhere program and may not contain all information available regarding this patient. Last updated 18.[facility] [employer] Social History Tobacco Use Types Packs/Day Years [...] complete this topic MENINGOCOCCAL (Group B) VACCINE SHARED DECISION-MAKING Aged Out No longer eligible based on patient's age to complete this topic MENINGOCOCCAL GROUPS A/C/Y/W VACCINE Aged Out No longer eligible based on patient's age to complete this topic
--- OUTSIDE RECORDS SUMMARY | 2025-01-10 12:42 | XMS_ITS | Clinical Summary ---
Author Organization [facility] Address [address] [place] [address] Care Team Providers Care Flotation Tender Helper Name Role Phone Unavailable Primary Care Provider [...] Comments Blood Pressure 140/100 10/11/2012 4:17 PM SUPERVISOR NURSE Pulse 78 10/11/2012 4:17 PM SUPERVISOR NURSE Temperature - - Respiratory Rate 16 11/13/2010 1:41 AM SUPERVISOR NURSE Oxygen Saturation - - Inhaled Oxygen Concentration - - Weight 145.2 kg (320 lb) 10/11/2012 4:17 PM SUPERVISOR NURSE Height 170.2 cm (5' 7 ) 10/11/2012 4:17 PM SUPERVISOR NURSE Body Mass Index 50.12 10/11/2012 4:17 PM SUPERVISOR NURSE Plan of Treatment Health Maintenance Due Date [...]
[2025-01-10 12:57] LABS: Alanine Aminotransferase 21 U/L (14-59); Albumin Level 3.9 g/dL (3.4-5.0); Alkaline Phosphatase 104 U/L (46-116); Anion Gap 8 mmol/L (4-12); Aspartate Amino Transferase 13 U/L (15-37); Bilirubin,Total 0.3 mg/dL (0.00-1.00); Blood Urea Nitrogen 13 mg/dL (7-18); CRP 0.7 mg/dL (0.0-0.9); Calcium 9.1 mg/dL (8.5-10.1); Carbon Dioxide 28 mmol/L (21-32); Chloride 108 mmol/L (98-108); Estimated Glomerular Filt Rate > 60; Glucose 94 mg/dL (70-99); Osmolality Calculated 298 mOsm/kg (285-295); Potassium 4.6 mmol/L (3.5-5.1); Sodium 144 mmol/L (136-145); Thyroid Stimulating Hormone 1.73 uIU/mL (0.36-3.74); Total Protein 6.9 g/dL (6.4-8.2)
== END 2025-01-10 11:14 | disposition home or self-care (01) ==
LOC: CHSLAB 11:15
PROVIDERS: PCP Internal Medicine; Visit Provider Internal Medicine
DX: J32.9 Chronic sinusitis, unspecified (principal); R51.9 Headache, unspecified; R53.83 Other fatigue
CPT/HCPCS: 36415; 70220; 80053; 84443; 85027; 86140

== ENCOUNTER 2025-01-28 10:08 | Outpatient (CLI) | payer MEDICARE, SELFPAY ==
--- NOTE | ~2025-01-28 | CT_ITS ---
EXAMINATION: CT sinus wo con DATE: 01/28/2025 10:24 INDICATION: Sinus infection. Headache. Dizziness. TECHNIQUE: Computed tomography (CT) of the paranasal sinuses was performed without intravenous contra st. The dose-length product was 192.97 mGy-cm. Automated exposure control and iterative reconstructio n technique were employed. COMPARISON: None FINDINGS: There is mucosal thickening of the maxillary, left frontal and ethmoid sinuses. There is mo derate mucosal thickening of the left sphenoid sinus. Leftward nasal septal deviation. Ostiomeatal un its are patent. Mastoids are pneumatized. IMPRESSION: 1. Moderate sinus disease. Reviewed, dictated and finalized at location B. IMPRESSION: 1. Moderate sinus disease.
--- OUTSIDE RECORDS SUMMARY | 2025-01-28 10:21 | XMS_ITS | Clinical Summary ---
Author Organization [facility] Address [address] [place] [address] Care Team Providers Care Shipper Name Role Phone Unavailable Primary Care Provider Unavailabl e Source Comments [facility],non-owned Affiliates and Associated Physician Practices is amultiple site organization consisting of ambulatory clinics and hospital sitesin [place], [place], [place] and [place]. This disclosure is being madepursuant to the Care Everywhere program and may not contain all information available regarding this patient. Last updated 18.[facility] [employer] Social History Tobacco Use Types Packs/Day Years Used Date Smoking Tobacco: Never Assessed Comments Unknown Sex and Gender Information Value Date Recorded Sex Assigned at Not on file Legal Sex Female 4:04 PM CDT Gender Identity Not on file [...] of 2) 2007 COVID-19 VACCINE (4 - season) 2024 07/12/2021, 11/15/2020, 2020 DEPRESSION SCREENING 10/13/2024 MEDICARE AWV CALENDAR YEAR 2024 INFLUENZA VACCINE (Season Ended) 2025 09/09/2023, 07/12/2021, 08/02/2020, Additional history exists Respiratory Syncytial Virus (RSV) Vaccine Pt: or [...] on patient's age to complete this topic Insurance [employer] MEDICARE ADV
--- OUTSIDE RECORDS SUMMARY | 2025-01-28 10:21 | XMS_ITS | Clinical Summary ---
Author Organization [facility] Address [address] [place] [address] Care Team Providers Care Salesperson Pets And Pet Supplies Name Role Phone Unavailable Primary Care Provider [...] Comments Blood Pressure 140/100 10/11/2012 4:17 PM HEAD PUMPER Pulse 78 10/11/2012 4:17 PM HEAD PUMPER Temperature - - Respiratory Rate 16 11/13/2010 1:41 AM HEAD PUMPER Oxygen Saturation - - Inhaled Oxygen Concentration - - Weight 145.2 kg (320 lb) 10/11/2012 4:17 PM HEAD PUMPER Height 170.2 cm (5' 7 ) 10/11/2012 4:17 PM HEAD PUMPER Body Mass Index 50.12 10/11/2012 4:17 PM HEAD PUMPER Plan of Treatment Health Maintenance Due Date Last Done Comments Colorectal Cancer Screening Colonoscopy (10 Years) 1957 Hepatitis C 1975 DTaP, Tdap and Td Vaccines ( 1 - Tdap) 1976 Mammogram Screening 1997 Pneumococcal Vaccine: 50+ Ye ars (1 of 1 - PCV) 2007 Zoster Vaccines (1 of 2) 2007 Dexa Scan (General) 2022 COVID-19 Vaccine ( - 2023-2 5 season) 2024 RSV Immunization or 60+ Years (1 [...]
--- OUTSIDE RECORDS SUMMARY | 2025-01-28 10:21 | XMS_ITS | Referral Summary ---
Author Organization [facility] [address] Address [address] [place] [phone] Care Team Providers Care Pet Handler Name Role Phone Elver Kumar MD Primary Care Provider [phone] Encounters Date Type Department Care Team Description 01/25/2025 Results Follow-Up [address] [address] Saadia Steven RN 01/24/2025 3:30 PM CDT Office Visit [facility] at [address] [phone] Keely Saleh MD Vaginal irritation (Primary Dx); Vulvar lesion; Vaginal discharge 01/21/2025 Telephone [facility] at [address] [phone] Keely Saleh MD from Last 3 Months Allergies Active Allergy Reactions Criticality Noted Date [...] a week 42.5 g 3 02/19/2024 Active cefdinir (OMNICEF) 300 mg capsule Take 1 capsule (300 mg total) by mouth every 12 (twelve) hours 01/10/2025 Active doxycycline 100 mg tablet Take 1 tablet (100 mg total) by mouth 2 (two) times a day 01/10/2025 Active fluconazole (DIFLUCAN) 150 mg tabletIndicatio ns:Vaginal irritation One po q o d x 3 doses 3 tablet 01/24/2025 Active Active Problems Problem Noted Date Diagnosed Date Vulvar irritation 01/24/2025 Postmenopausal bleeding 03/03/2024 Assessment & Plan (03/03/2024 [...] It is large Will refer to uro telecommunications line mechanic Well woman exam 02/12/2024 Overview (02/12/2024): Lab: [...] by your partner or ex-partner? 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 II INSTRUCTOR Gender Identity Not on file Sexual Orientation Not on file Last Filed Vital Signs Vital Sign Reading Time Taken Comments Blood Pressure 118/80 01/24/2025 3:34 PM CDT Pulse - - Temperature - - Respiratory Rate - - Oxygen Saturation - - Inhaled Oxygen Concentration - - Weight 119.3 kg (263 lb) 01/24/2025 3:34 PM CDT Height 167.6 cm (5' 6 ) 01/24/2025 3:34 PM CDT Body Mass Index 42.45 01/24/2025 3:34 PM CDT Plan of Treatment Not on file Procedures Procedure Name Priority Date/Time Associated Diagnosis Comments [facility] ADVANCED VAGINITIS, TMA Routine 01/24/2025 4:00 PM CDT Vaginal irritation Vaginal discharge from Last 3 Months Results * (ABNORMAL) [facility] Advanced Vaginitis, TMA Vaginal Swab (01/24/2025 4:00 PM CDT) Pathologist [facility](R) ADV Bacterial vaginosis (BV), TMA NEGATIVE NEGATIVE [facility] Hemalatha species DETECTED(A) NOT DETECTED [facility] Hemalatha glabrata NOT DETECTED NOT DETECTED [facility] Comment: Hemalatha species C. albicans, C. tropicalis, C. parapsilosis, and/or C. dubliniensis can be detected, but not differentiated, in the Hemalatha spp. result. Trichomonas vaginalis (TV), TMA NOT DETECTED NOT DETECTED [facility] Vaginal Swab 01/24/2025 4:00 PM CDT 01/25/2025 3:43 AM CDT us Keely Saleh MD LAB MICROBIOLOGY - GENERAL ORDERABLES Final Result [facility] [id number] [address], [place] [id number] from Last 3 Months [facility] Care Teams Pet Handler Relationship Specialty Start Date End Date Elver Kumar MD PCP - General Internal Medicine 02/04/24
--- OUTSIDE RECORDS SUMMARY | 2025-01-28 10:21 | XMS_ITS | Clinical Summary ---
Author Organization [facility] [address] Address [address] [place] [id number] Care Team Providers Care Confectionery Drops Machine Operator Name Role Phone Elver Kumar MD Primary Care Provider [phone] Allergies Active Allergy Reactions Criticality Noted Date [...] It is large Will refer to uro compass operator Well woman exam 02/12/2024 Overview (02/12/2024): Lab: [...] AM CDT): To usg [place], unspecified 02/13/2011 Encounters Date Type Department Care Team Description 01/25/2025 Results Follow-Up [address] [place] [id number] Saadia Steven RN 01/24/2025 3:30 PM CDT Office Visit [facility] at [address] [phone] Keely Saleh MD Vaginal irritation (Primary Dx); Vulvar lesion; Vaginal discharge 01/21/2025 Telephone [facility] at [address] [phone] eKely Saleh MD from Last 3 Months Surgical History Surgery Date Site/Laterality Comments BARIATRIC [...] Cancer Neg Hx no colon, breas t, compass operator cancer cmt 02/12/24 Relation Name Status Comments [...] on file 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 Gender Identity Not on file Sexual Orientation Not on file Obstetrics History Para Term AB IAB SAB Ectopic Multiple Livin g Live Births 3 2 2 1 1 2 2 Date Outcome GA Total Labor Labor//3rd Weight Sex Type Anes PTL Jenny A1 [...] 01/24/2025 3:34 PM CDT Plan of Treatment Health Maintenance Due Date Last Done Comments Breast Cancer Screening-Mammogram 1955 Colon Cancer Screening-Colonoscopy 1955 Depression Screening 1957 Fall Risk Assessment 1955 Hepatitis C Screening 1957 Osteoporosis Screening-Bone Density Scan 1957 DTaP/Tdap/Td Vaccine (1 - Tdap) 1968 Hepatitis B Screening 1975 Well Visit 65+ 2022 Influenza Vaccine (Season Ended) 2025 09/09/2023, 07/12/2021, 08/02/2020, Additional history exists Zoster Vaccine Completed 04/15/2019, 09/27/2018 Pneumococcal vaccine 65+ Completed 09/09/2023, 07/13 Procedures Procedure Name Priority Date/Time Associated Diagnosis Comments SUREAB ADVANCED VAGINITIS, TMA Routine 01/24/2025 4:00 PM CDT Vaginal irritation Vaginal discharge from Last 3 Months Results * (ABNORMAL) Sureab Advanced Vaginitis, TMA Vaginal Swab (01/24/2025 4:00 PM CDT) [facility] Bacterial vaginosis (BV), TMA NEGATIVE NEGATIVE [facility] Hemalatha species DETECTED(A) NOT DETECTED [facility] Hemalatha glabrata NOT DETECTED NOT DETECTED [facility] Comment: Hemalatha species C. albicans, C. tropicalis, C. parapsilosis, and/or C. dubliniensis can be detected, but not differentiated, in the Hemalatha spp. result. Trichomonas vaginalis (TV), TMA NOT DETECTED NOT DETECTED [facility] Vaginal Swab 01/24/2025 4:00 PM CDT 01/25/2025 3:43 AM CDT us Keely Saleh MD LAB MICROBIOLOGY - GENERAL ORDERABLES Final Result [facility] [id number] [address] [id number] from Last 3 Months [facility] Care Teams Confectionery Drops Machine Operator Relationship Specialty Start Date End Date Elver Kumar MD PCP - General Internal Medicine 02/04/24
== END 2025-01-28 10:09 | disposition home or self-care (01) ==
LOC: CHSIMG 10:10
PROVIDERS: PCP Internal Medicine; Visit Provider Internal Medicine
DX: J32.9 Chronic sinusitis, unspecified (principal)
CPT/HCPCS: 70486